=== PATIENT | female | born 2000 | race Caucasian/White ===

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

== ENCOUNTER 2021-03-06 13:04 | Emergency (ER) | payer OTHER ==
[2021-03-06 13:14] VITALS: BP 118/73; PULSE 94; TEMP 98.1; BMI 31.1
[2021-03-06] MEDS ORDERED: ACETAMINOPHEN 500 MG TABLET (FP) PO ONE (15:35)
[2021-03-06] MEDS ORDERED: FAMOTIDINE 20 MG TABLET PO ONE (15:35)
[2021-03-06] MEDS ORDERED: MAG HYDROX/AL HYDROX/SIMETH -MYLANTA- ORAL SUSPENSION PO ONE (15:41)
[2021-03-06] MEDS ORDERED: FAMOTIDINE 20 MG TABLET ONE (15:42)
[2021-03-06] MEDS ORDERED: ACETAMINOPHEN 325 MG TABLET (FP) ONE (15:42)
[2021-03-06] MEDS ORDERED: MAG HYDROX/AL HYDROX/SIMETH 30 ML UNIT-DOSE CUP ONE (16:26)
[2021-03-06 16:28] LABS: HCG,QUALITATIVE URINE Negative
[2021-03-06 16:31] LABS: EPI CELLS >36 /uL (0-25.1); HYALINE CASTS 4 /uL (0-3.1); URINE APPEARANCE CLOUDY; URINE BACTERIA 292 /uL (0-1359); URINE BILIRUBIN NEGATIVE (NEGATIVE); URINE COLOR DK YELLOW; URINE GLUCOSE (UA) NEGATIVE (NEGATIVE); URINE KETONE NEGATIVE (NEGATIVE); URINE LEUK ESTERASE TRACE (NEGATIVE); URINE NITRITE NEGATIVE (NEGATIVE); URINE PROTEIN TRACE (NEGATIVE); URINE WBC 34 /uL (0-25.8)
[2021-03-06 21:21] LABS: URINE RBC 37.6 /uL (0-23.9)
== END 2021-03-06 17:00 | disposition home or self-care (01) ==
LOC: JER 13:04
DX: R10.13 Epigastric pain (principal)
CPT/HCPCS: 36415; 81003; 82272; 84703; 99283-25

== ENCOUNTER 2021-05-11 11:53 | Emergency (ER) | payer OTHER ==
[2021-05-11 12:17] VITALS: BP 138/89; PULSE 74; TEMP 97.8; BMI 31.7
== END 2021-05-11 12:57 | disposition home or self-care (01) ==
LOC: JERFT 11:53
DX: R07.0 Pain in throat (principal)
CPT/HCPCS: 99281-25

== ENCOUNTER 2023-03-03 09:39 | Emergency (ER) | payer OTHER ==
[2023-03-03 09:54] VITALS: BP 97/62; PULSE 75; RESP 20; TEMP 98.2; BMI 30.9
== END 2023-03-03 11:54 | disposition home or self-care (01) ==
LOC: JER 09:39
DX: R42 Dizziness and giddiness (principal)
CPT/HCPCS: 99283-25

== ENCOUNTER 2023-05-09 09:18 | Emergency (ER) | payer OTHER ==
[2023-05-09 09:24] VITALS: BP 116/55; PULSE 83; RESP 20; TEMP 97.9; BMI 34.0
[2023-05-09 09:42] LABS: EPI CELLS >36 /uL (0-25.1); HYALINE CASTS 5 /uL (0-3.1); URINE APPEARANCE CLOUDY; URINE BACTERIA 582 /uL (0-1359); URINE BILIRUBIN NEGATIVE (NEGATIVE); URINE COLOR DK YELLOW; URINE GLUCOSE (UA) NEGATIVE (NEGATIVE); URINE KETONE 1+ (NEGATIVE); URINE LEUK ESTERASE 1+ (NEGATIVE); URINE NITRITE NEGATIVE (NEGATIVE); URINE PROTEIN TRACE (NEGATIVE); URINE WBC 72 /uL (0-25.8)
[2023-05-09 09:56] LABS: HCG,QUALITATIVE URINE Positive
[2023-05-09 10:05] LABS: URINE RBC 154 /uL (0-23.9)
[2023-05-09] MEDS ORDERED: NITROFURANTOIN MONOHYD/M-CRYST 100 MG CAPSULE PO ONE (10:18)
[2023-05-09 10:20] LABS: BASO % 0.5 % (0-2.0); EOS % 2.2 % (0-4.5); HEMATOCRIT 38.2 % (32.4-45.2); LYMPH % 25.4 % (8-40); MCH 30.3 pg (25.7-33.7); MCHC 33.9 g/dl (32.0-36.0); MEAN CELL VOLUME 89.3 fl (80-96); MEAN PLT VOLUME 8.4 fl (7.5-11.1); MONO % 4.9 % (3.8-10.2); PLATELET COUNT 272 10^3/uL (134-434); RBC 4.28 M/mm3 (3.60-5.2); RDW 13.6 % (11.6-15.6); WHITE BLOOD COUNT 7.9 K/mm3 (4.0-10.0)
[2023-05-09 10:33] LABS: POTASSIUM 3.7 mmol/L (3.5-5.1)
[2023-05-09 10:35] LABS: ALBUMIN 3.4 g/dl (3.4-5.0); BLOOD UREA NITROGEN 5.6 mg/dL (7-18); CALCIUM 8.7 mg/dL (8.5-10.1)
[2023-05-09 10:39] LABS: CREATININE 0.6 mg/dL (0.55-1.3)
[2023-05-09 10:40] LABS: BILIRUBIN,TOTAL 0.4 mg/dL (0.2-1); TOT PROT 6.9 g/dl (6.4-8.2)
[2023-05-09] MEDS ORDERED: NITROFURANTOIN MACROCRYSTAL 50 MG CAPSULE (FP) ONE (11:07)
== END 2023-05-09 13:38 | disposition home or self-care (01) ==
LOC: JER 09:18
DX: O20.9 Hemorrhage in early pregnancy, unspecified (principal); O23.41 Unspecified infection of urinary tract in pregnancy, first trimester; Z3A.01 Less than 8 weeks gestation of pregnancy
CPT/HCPCS: 36415; 76817-TC; 80053; 81003; 84702; 84703; 85025; 86850; 86900; 86901; 87086; 99284-25